=== PATIENT | male | born 2000 | race Hispanic/Latino ===

== ENCOUNTER 2021-01-26 16:53 | Emergency (ER) | payer OTHER ==
[~2021-01-26] VITALS: Ht 167.6 cm; Wt 70.5 kg
--- NOTE | 2021-01-26 17:42 | REP ---
INDICATION: pain. COMPARISON: None. TECHNIQUE: Four views of the left ankle are provided. FINDINGS: Four views of the left ankle demonstrate moderate anterolateral soft tissue swelling. Ankle mortise is intact. No fracture is evident. No subluxation seen. IMPRESSION: Moderate anterolateral soft tissue swelling. No fracture or subluxation seen. <Electronically signed by Vito Stewart > 01/26/21 [id number]
[2021-01-26] MEDS ORDERED: IBUPROFEN 600MG TAB PO ONE (17:50)
[2021-01-26] MEDS ORDERED: IBUP-1022 PO (17:54)
[2021-01-26 18:08] VITALS: BP 141/81
== END 2021-01-26 18:10 | disposition home or self-care (01) ==
LOC: M ED 16:53
DX: S93.402A Sprain of unspecified ligament of left ankle, initial encounter (principal); X50.0XXA Overexertion from strenuous movement or load, initial encounter; Y92.410 Unspecified street and highway as the place of occurrence of the external cause; Y93.51 Activity, roller skating (inline) and skateboarding; Y99.9 Unspecified external cause status

== ENCOUNTER 2021-07-15 17:45 | Emergency (ER) | payer OTHER ==
[~2021-07-15] VITALS: Ht 167.6 cm; Wt 74.8 kg
[2021-07-15 17:45] VITALS: BP 131/86
[~2021-07-15 17:45] MED LIST: IBUP-1022 PO
[2021-07-15 21:18] LABS: RSV AMPLIFICATION NEGATIVE (NEGATIVE)
--- NOTE | 2021-07-15 23:36 | REPVR ---
PROCEDURE INFORMATION: Exam: XR Chest Exam date and time: 07/15/2021 10:49 PM Age: 21 years old Clinical indication: Other: Cough TECHNIQUE: Imaging protocol: XR of the chest. Views: 1 view. COMPARISON: No relevant prior studies available. FINDINGS: Lungs: Unremarkable. No consolidation. Pleural spaces: Unremarkable. No pleural effusion. No pneumothorax. Heart/Mediastinum: Unremarkable. No cardiomegaly. Bones/joints: Unremarkable. IMPRESSION: No acute findings. Electronically signed by: Manas Michelle On 07/15/2021 23:36:02 PM
== END 2021-07-15 23:04 | disposition home or self-care (01) ==
LOC: M ED 17:45
DX: J06.9 Acute upper respiratory infection, unspecified (principal); R50.9 Fever, unspecified; F17.200 Nicotine dependence, unspecified, uncomplicated

== ENCOUNTER 2022-03-09 20:37 | Emergency (ER) | payer OTHER ==
[~2022-03-09] VITALS: Ht 167.6 cm; Wt 77.3 kg
[2022-03-09 20:38] VITALS: BP 124/82
[2022-03-09] MEDS ORDERED: predniSONE 20 MG TAB PO ONE (23:20)
[2022-03-09] MEDS ORDERED: valACYclovir HCL 500 MG TAB PO ONE (23:20)
[2022-03-09] MEDS ORDERED: VALA1TAB5 PO (23:24)
[2022-03-09] MEDS ORDERED: PRED10TA2 PO (23:24)
== END 2022-03-09 23:50 | disposition home or self-care (01) ==
LOC: M ED 20:37
DX: G51.0 Bell's palsy (principal); Z87.891 Personal history of nicotine dependence
CPT/HCPCS: 99284; J7512

== ENCOUNTER → 2022-11-14 | Outpatient (CLI) | payer OTHER ==
[~2022-11-14] MED LIST changes: +ISOVUE-300 61% 50ML VIAL ONE; +LIDOCAINE 1% MDV 20ML VIAL ONE; +PRED10TA2 PO; +TRIAMCINOLONE ACETONIDE SUSP 40MG/ML 1ML VIAL ONE; +VALA1TAB5 PO
== END ==
LOC: M PLAIMG 15:03
PROVIDERS: ATTEND Physician Assistant Surgical
DX: S73.122A Ischiocapsular ligament sprain of left hip, initial encounter (principal); X58.XXXA Exposure to other specified factors, initial encounter; Y92.9 Unspecified place or not applicable